=== PATIENT | male | born 1945 | race Caucasian/White ===

== ENCOUNTER 2017-10-26 01:21 | Outpatient (CLI) | payer MEDICARE, OTHER, SELFPAY ==
--- NOTE | 2017-10-26 10:48 | DI.RAD_ITS ---
SYMPTOM/DIAGNOSIS: RENAL CALCULUS, N20.0 ABDOMEN: 10/26 Two views were obtained. A catheter overlies the upper abdomen. Bowel gas pattern is within normal limits. No definite urinary tract calcification is seen.
== END 2017-10-26 01:41 ==
PROVIDERS: PCP Family Medicine; Visit Provider Urology
DX: N20.0 Calculus of kidney (principal)
CPT/HCPCS: 74018

== ENCOUNTER 2018-04-01 16:00 | Outpatient (CLI) | payer MEDICARE, OTHER, SELFPAY ==
--- NOTE | 2018-04-01 14:57 | DI.US_ITS ---
SYMPTOMS/DIAGNOSIS: RIGHT LEG PAIN, M79.604, TENDER VARICOSE VEIN, RIGHT THIGH DUPLEX VENOUS ULTRASOUND, RIGHT LOWER EXTREMITY: Duplex evaluation of the deep venous system was performed according to the usual protocol. The deep veins are freely compressible throughout to the level of the popliteal veins. There is normal Doppler flow visible throughout and there is excellent flow augmentation with manual calf compression. CONCLUSION: No evidence of deep venous thrombosis.
== END 2018-04-01 16:20 ==
PROVIDERS: PCP Family Medicine; Visit Provider Family Medicine
DX: M79.604 Pain in right leg (principal)
CPT/HCPCS: 93971

== ENCOUNTER 2018-08-30 13:15 | Outpatient (REF) | payer MEDICARE, OTHER, SELFPAY ==
[2018-08-30 18:53] LABS: Abs Immature Grans 0.02 k/cumm (0.0-0.09); Absolute Basophil Count 0.05 k/cumm (0.0-0.2); Absolute Eosinophil Count 0.13 k/cumm (0.0-0.7); Absolute Lymphocyte Count 1.75 k/cumm (1.2-3.4); Absolute Monocyte Count 0.83 k/cumm (0.11-0.7); Absolute Neutrophil Count 6.45 k/cumm (1.2-6.7); Basophils % 0.5; Eosinophils % 1.4; HCT 39.4 % (40.0-50.0); HGB 13.5 g/dL (13.5-17.5); Immature Grans % 0.2; Mean Corp. HGB Concentration 34.3 g/dL (32.0-36.0); Mean Corpuscular Hemoglobin 33.2 pg (27.0-33.0); Mean Corpuscular Volume 96.8 fL (80-95); Mean Platelet Volume 11.6 fL (8.0-11.0); Neutrophils % 69.9; Platelet Count 169 x1000/uL (130-400); RBC 4.07 m/cumm (4.50-6.00); RBC Distribution Width 13.3 % (11.8-14.1); White Blood Cell Count 9.23 k/cumm (4.4-10.8)
[2018-08-30 19:47] LABS: ALT 27 U/L (12-78); AST 21 U/L (15-37); Albumin 3.4 g/dL (3.4-5.0); Alkaline Phosphatase 102 U/L (46-116); Anion Gap 9.8 mmol/L (3-11); BUN 34 mg/dL (7-18); Bilirubin, Total 0.5 mg/dL (0.2-1.0); CO2 26.2 mmol/L (21.0-32.0); CREATININE 1.19 mg/dL (0.70-1.30); Calcium 8.7 mg/dL (8.5-10.1); Chloride 104 mmol/L (98-107); Glucose 156 mg/dL (70-100); Magnesium 1.7 mg/dL (1.8-2.4); Potassium 4.6 mmol/L (3.5-5.1); Sodium 140 mmol/L (136-145); Total Protein 6.8 g/dL (6.4-8.2); Vitamin B12 405 pg/mL (193-986)
[2018-08-30 20:41] LABS: NT-proBNP 85 pg/mL
== END 2018-08-30 13:35 ==
LOC: NCHCN 13:15
PROVIDERS: PCP Family Medicine; Visit Provider Family Medicine
DX: R06.02 Shortness of breath (principal); K76.0 Fatty (change of) liver, not elsewhere classified; D70.9 Neutropenia, unspecified; E83.42 Hypomagnesemia; D75.89 Other specified diseases of blood and blood-forming organs
CPT/HCPCS: 80053; 82607; 83735; 83880; 85025

== ENCOUNTER 2019-01-30 19:54 | Outpatient (REF) | payer MEDICARE, OTHER, SELFPAY ==
[2019-01-30 19:12] LABS: HCT 38.7 % (40.0-50.0); Mean Corp. HGB Concentration 33.6 g/dL (32.0-36.0); Mean Corpuscular Hemoglobin 32.8 pg (27.0-33.0); Mean Corpuscular Volume 97.7 fL (80-95); Mean Platelet Volume 11.9 fL (8.0-11.0); Platelet Count 184 x1000/uL (130-400); RBC 3.96 m/cumm (4.50-6.00); RBC Distribution Width 13.3 % (11.8-14.1); White Blood Cell Count 8.84 k/cumm (4.4-10.8)
[2019-01-30 19:35] LABS: ALT 23 U/L (16-63); AST 22 U/L (15-37); Albumin 3.7 g/dL (3.4-5.0); Alkaline Phosphatase 100 U/L (46-116); Anion Gap 10.1 mmol/L (3-11); BUN 33 mg/dL (7-18); Bilirubin, Total 0.7 mg/dL (0.2-1.0); CO2 24.9 mmol/L (21.0-32.0); CREATININE 1.32 mg/dL (0.70-1.30); Calcium 9.3 mg/dL (8.5-10.1); Chloride 105 mmol/L (98-107); Estimated GFR 53.17 (mL/min/1.73m2); Glucose 152 mg/dL (74-106); Magnesium 1.8 mg/dL (1.8-2.4); Sodium 140 mmol/L (136-145); Total Protein 7.4 g/dL (6.4-8.2)
== END 2019-01-30 20:14 ==
LOC: NCHCN 19:54
PROVIDERS: PCP Family Medicine; Visit Provider Family Medicine
DX: E83.42 Hypomagnesemia (principal); M1A.9XX0 Chronic gout, unspecified, without tophus (tophi); K74.60 Unspecified cirrhosis of liver
CPT/HCPCS: 80053; 85027; 83735; 84550; 85610

== ENCOUNTER 2019-08-10 11:06 | Outpatient (REF) | payer MEDICARE, OTHER, SELFPAY ==
[2019-08-10 16:39] LABS: Iron 114 ug/dL (65-175); Total Iron Binding Capacity 259 ug/dL (250-450); Transferrin Sat 44 % (20-55)
[2019-08-10 16:40] LABS: ALT 25 U/L (16-63); AST 27 U/L (15-37); Albumin 3.6 g/dL (3.4-5.0); Alkaline Phosphatase 96 U/L (46-116); Anion Gap 8.9 mmol/L (3-11); BUN 41 mg/dL (7-18); Bilirubin, Total 0.7 mg/dL (0.2-1.0); CO2 26.1 mmol/L (21.0-32.0); CREATININE 1.51 mg/dL (0.70-1.30); Calcium 9.1 mg/dL (8.5-10.1); Chloride 104 mmol/L (98-107); Estimated GFR 45.52 (mL/min/1.73m2); Glucose 173 mg/dL (74-106); Magnesium 1.9 mg/dL (1.8-2.4); Sodium 139 mmol/L (136-145)
== END 2019-08-10 11:26 ==
LOC: NCHCN 11:06
PROVIDERS: PCP Family Medicine; Visit Provider Family Medicine
DX: D64.9 Anemia, unspecified (principal); K74.60 Unspecified cirrhosis of liver; E83.42 Hypomagnesemia
CPT/HCPCS: 80053; 83540; 83550; 83735

== ENCOUNTER 2019-08-17 01:54 | Outpatient (CLI) | payer MEDICARE, OTHER, SELFPAY ==
--- NOTE | 2019-08-17 10:32 | DI.RAD_ITS ---
EXAM: XR CHEST 2V PA LATERAL CLINICAL HISTORY: CHRONIC COUGH, R05 TECHNIQUE: COMPARISON: CR CHEST 2 VIEWS PA,LAT from 07/15/2012 FINDINGS: Diaphragm is mildly elevated on the right, unchanged from prior films of June 2012. Heart is not enla rged. The lungs are clear. No pleural effusion seen. IMPRESSION: Negative examination of the chest.
== END 2019-08-17 02:14 ==
PROVIDERS: PCP Family Medicine; Visit Provider Family Medicine
DX: R05 Cough (principal)
CPT/HCPCS: 71046

== ENCOUNTER 2019-08-21 01:48 | Outpatient (CLI) | payer MEDICARE, OTHER, SELFPAY ==
--- NOTE | 2019-08-21 | DI.US_ITS ---
EXAM: US ABDOMEN RENAL CLINICAL HISTORY: CIRRHOSIS, ANEMIA, RENAL INSUFF, K74.60, D64.9, N28.9 TECHNIQUE: Ultrasound abdomen performed using standard protocol. COMPARISON: CT CT RENAL ARTERY from 11/04/2012 FINDINGS: ABDOMINAL AORTA AND IVC: Visualized portions normal caliber. PANCREAS: Normal where visualized. LIVER: There is mild nodularity of the border of the liver. The liver is mildly echogenic. Hepatic cirrhosis should be considered. Hepatopedal flow in the Portal Vein. GALLBLADDER: No evidence of cholelithiasis. No evidence of wall thickening. No pericholecystic fluid identified. BILIARY SYSTEM: Common bile duct measures 3.7 mm. No intrahepatic biliary ductal dilation. PACHECO'S SIGN: Negative. KIDNEYS: Kidneys are symmetric in size. No evidence of renal calculi. No evidence of hydronephrosis. Bilateral renal cysts are present. The right renal cyst measures 1 x 1.2 x 0.9 cm. The left renal c yst measures 4.5 x 2.6 x 2.5 cm. SPLEEN: Upper limits of normal in size. Splenic varices are present.. ASCITES: None seen. IMPRESSION: 1. Findings suggesting hepatic cirrhosis. 2. Bilateral renal cysts. 3. Splenic varices are present. They were present on the prior CT scan of the abdomen and pelvis fro m 11/04/2012. DATA REPOSITORY:
== END 2019-08-21 02:08 ==
PROVIDERS: PCP Family Medicine; Visit Provider Family Medicine
DX: K74.60 Unspecified cirrhosis of liver (principal); N28.1 Cyst of kidney, acquired; I86.8 Varicose veins of other specified sites
CPT/HCPCS: 76770; 76700

== ENCOUNTER 2019-11-07 08:49 | Outpatient (REF) | payer MEDICARE, OTHER, SELFPAY ==
[2019-11-07 18:47] LABS: HCT 37.9 % (40.0-50.0); HGB 12.5 g/dL (13.5-17.5); MCH 32.5 pg (27.0-33.0); MCV 98.4 fL (80-95); MPV 11.6 fL (8.0-11.0); Platelet Count 165 10^3/uL (130-400); RBC 3.85 10^6/uL (4.36-5.78); RDW 12.6 % (11.8-14.1); RDW-SD 45.4 fL; WBC 7.54 10^3/uL (4.4-10.8)
[2019-11-07 18:54] LABS: CREATININE 1.31 mg/dL (0.70-1.30); Estimated GFR 53.49 (mL/min/1.73m2)
== END 2019-11-07 09:09 ==
LOC: NCHCN 08:49
PROVIDERS: PCP Family Medicine; Visit Provider Family Medicine
DX: D64.9 Anemia, unspecified (principal); R05 Cough
CPT/HCPCS: 85027; 82565

== ENCOUNTER 2019-12-29 14:32 | Outpatient (CLI) | payer MEDICARE, OTHER, SELFPAY ==
--- NOTE | 2019-12-29 | DI.RAD_ITS ---
EXAM: 2D digital imaging was performed. CLINICAL HISTORY: HEMATURIA, R31.9, ? STONE. COMPARISON: CR XR ABDOMEN FLAT PLATE from 10/26/2017 CR XR CHEST 2V PA LATERAL from 08/17/2019 TECHNIQUE: Supine views of the abdomen performed. FINDINGS: BOWEL GAS PATTERN: Nondistended. CALCIFICATIONS: No radiopaque calcifications. OSSEOUS STRUCTURES: Normal for age. OTHER FINDINGS: Again seen findings of a gastric band procedure. Lung bases: Clear. IMPRESSION: 1. Nonobstructive bowel gas pattern. 2. No radiopaque calculi. DATA REPOSITORY: RADIATION DOSE DELIVERED:
== END 2019-12-29 14:52 ==
PROVIDERS: PCP Family Medicine; Visit Provider Nurse Practitioner Family
DX: R31.9 Hematuria, unspecified (principal)
CPT/HCPCS: 74018

== ENCOUNTER 2020-01-25 09:58 | Outpatient (REF) | payer MEDICARE, OTHER, SELFPAY ==
[2020-01-25 18:23] LABS: HCT 38.1 % (40.0-50.0); HGB 12.5 g/dL (13.5-17.5); MCH 32.7 pg (27.0-33.0); MCHC 32.8 % (32.0-36.0); MCV 99.7 fL (80-95); MPV 11.7 fL (8.0-11.0); Platelet Count 171 10^3/uL (130-400); RBC 3.82 10^6/uL (4.36-5.78); RDW 13.4 % (11.8-14.1); RDW-SD 48.6 fL; WBC 9.49 10^3/uL (4.4-10.8)
[2020-01-25 18:27] LABS: Prothrombin Time 10.5 sec (9.3-11.0)
[2020-01-25 18:33] LABS: ALT 24 U/L (16-63); AST 23 U/L (15-37); Albumin 3.4 g/dL (3.4-5.0); Alkaline Phosphatase 107 U/L (46-116); Anion Gap 6.7 mmol/L (3-11); BUN 31 mg/dL (7-18); Bilirubin, Total 0.7 mg/dL (0.2-1.0); CO2 26.3 mmol/L (21.0-32.0); CREATININE 1.36 mg/dL (0.70-1.30); Calcium 8.7 mg/dL (8.5-10.1); Chloride 106 mmol/L (98-107); Estimated GFR 51.22 (mL/min/1.73m2); Glucose 170 mg/dL (74-106); Potassium 4.6 mmol/L (3.5-5.1); Sodium 139 mmol/L (136-145); Total Protein 6.7 g/dL (6.4-8.2)
[2020-01-25 19:31] LABS: Hemoglobin A1C 7.5 % (<5.7)
== END 2020-01-25 10:18 ==
LOC: NCHCN 09:58
PROVIDERS: PCP Family Medicine; Visit Provider Family Medicine
DX: E11.9 Type 2 diabetes mellitus without complications (principal); K74.60 Unspecified cirrhosis of liver
CPT/HCPCS: 80053; 85027; 83036; 85610

== ENCOUNTER 2020-02-06 00:28 | Outpatient (CLI) | payer MEDICARE, OTHER, SELFPAY ==
--- NOTE | 2020-02-06 | DI.US_ITS ---
EXAM: US ABDOMEN CLINICAL HISTORY: CIRRHOSIS OF LIVER,K74.60,HCC SCREEN TECHNIQUE: Ultrasound abdomen performed using standard protocol. COMPARISON: CT CT RENAL ARTERY from 11/04/2012 US US ABDOMEN RENAL from 08/21/2019 FINDINGS: ABDOMINAL AORTA AND IVC: Visualized portions normal caliber. PANCREAS: Normal where visualized. LIVER: The liver measures 17.1 cm in length. Hepatopedal flow in the Portal Vein. The liver has a no dular contour consistent with hepatic cirrhosis. Portions of the liver somewhat difficult to visuali ze. No discrete mass is seen sonographically. GALLBLADDER: No evidence of cholelithiasis. No evidence of wall thickening. No pericholecystic fluid identified. BILIARY SYSTEM: Common bile duct measures < 7 mm. No intrahepatic biliary ductal dilation. PACHECO'S SIGN: Negative. KIDNEYS: Kidneys are symmetric in size. No evidence of renal calculi. No evidence of hydronephrosis. There is a 2.5 x 2.7 x 3.6 cm cyst in the left kidney. This is unchanged compared to the CT scan fro m 11/04/2012. SPLEEN: The spleen measures 11.9 cm in length. Enlarged vessels are seen around the spleen consisten t with varices. These were present on the CT scan from 11/04/2012. ASCITES: None seen. IMPRESSION: Somewhat limited visualization of the liver. No discrete mass is identified. Sonographically findin gs are consistent with hepatic cirrhosis. If there is continued concern a CT scan of the liver with contrast should be considered for further evaluation. DATA REPOSITORY:
== END 2020-02-06 00:48 ==
PROVIDERS: PCP Family Medicine; Visit Provider Family Medicine
DX: K74.60 Unspecified cirrhosis of liver (principal)
CPT/HCPCS: 76700

== ENCOUNTER 2020-02-06 17:39 | Outpatient (REF) | payer MEDICARE, OTHER, SELFPAY ==
[2020-02-06 15:54] LABS: Bilirubin Negative (Negative); Blood Trace-intact (Negative); Clarity Clear (Clear); Glucose Negative (Negative); Ketones Negative (Negative); Leukocyte Esterase Negative (Negative); Nitrite Negative (Negative); Urobilinogen 0.2 EU/dL (Up TO 0.2); pH 5.5 (5-8)
[2020-02-06 16:33] LABS: Bacteria Rare HPF (Negative); C & S Indicated? No; Casts Negative LPF (Negative); Crystals Negative HPF (Negative); Epithelial Cells Negative HPF (Negative); Mucus Negative (Negative); Other Cells Negative (Negative); RBC 0-2 HPF (0-2); WBC Negative HPF (0-5)
== END 2020-02-06 17:59 ==
LOC: NCHCN 17:39
PROVIDERS: PCP Family Medicine; Visit Provider Family Medicine
DX: R31.0 Gross hematuria (principal)
CPT/HCPCS: 81003; 81015

== ENCOUNTER 2020-02-19 01:46 | Outpatient (CLI) | payer MEDICARE, OTHER, SELFPAY ==
--- NOTE | 2020-02-19 09:18 | DI.CT_ITS ---
EXAM: CT ABDOMEN PELVIS WO/W CLINICAL HISTORY: HEMATURIA GROSS, R31.0, H/O BLADDER CA. TECHNIQUE: Imaging Protocol: Axial computed tomography images with coronal and sagittal reformatted images were created and reviewed CONTRAST MATERIAL: Intravenous: Omnipaque 100cc Oral: None COMPARISON: No exams were available for comparison FINDINGS: VISUALIZED LUNG BASES: No nodules nor pleural effusions evident. ABDOMEN: There is a lap band noted the GE junction level. The reservoir is subcutaneous right of center. The no abnormal streaking nor collection in the subcutaneous fat nor along the course of the reservoir t ubing. LIVER: There are few tiny benign cysts in the liver. GALLBLADDER/BILIARY: No obvious gallbladder pathology. CBD is not dilated. PANCREAS: No evidence of pancreatic mass nor dilatation of the pancreatic duct. SPLEEN: Spleen is not enlarged. No obvious intrasplenic lesions. ADRENALS: There are no significant adrenal masses. KIDNEYS:There is an area of hypodensity in the left kidney extending from the parapelvic region out t o the cortical surface measuring approximately 4 x 2.8 centimetres, probably benign cyst. Smaller co rtical cysts are seen in the opposite-right kidney. No obvious solid renal masses. There is a tiny nonobstructive 2 millimeter calculus midpole level of the right kidney. No calculi seen in the left kidney. The ureters are not dilated. There are no calculi at the ureterovesical junctions nor withi n the urinary bladder... ABDOMINAL AORTA: Abdominal aorta is not enlarged and there is no [id number] adenopat hy. ABDOMINAL WALL/GI: No evidence of significant anterior abdominal wall hernia. No bowel obstruction. There is no ascites. There is, however, a left-sided meandering mesenteric vessel with a diameter of 7 millimeters, possibly significant with respect to venous collaterals. There are no abnormal subcu taneous collateral vessels. PELVIS: GI: No evidence of appendicitis.There is extensive sigmoid diverticulosis. There is very mild streak ing around the sigmoid and is junction with the descending-left:, possibly very subtle diverticulitis . No perforation or abscess at this level (series 10/image 57). LYMPH NODES: There is no intrapelvic nor inguinal adenopathy. REPRODUCTIVE: Prostate gland size is upper normal. Seminal vesicles unremarkable. URINARY BLADDER: Cyst there is a focus of regularity in the anterior wall of the urinary bladder, sli ghtly right of center. There is also a small 3 millimeter calcification in the superior wall of the urinary bladder, best seen on the sagittal images. This is on the outer aspect of the bladder wall a t this level. No other calcifications seen associated with the urinary bladder wall nor within the l umen. OSSEOUS: No significant osseous lesions. IMPRESSION: 1. There is a 4 x 2.8 centimeter probable cyst in the left kidney; Bosniak 2. 2. There is also a small 2 millimeter nonobstructive calculus in the opposite-right kidney. 3. There is subtle irregularity in the anterior wall of the urinary bladder which may be significant. Cystoscopy recommended. There is also a single focus of calcification associated with the superior wall of the urinary bladder. This appears to be on the external aspect of the wall at this level an d there is no distinct lesion evident at this level. There are no free calculi evident within the bl adder lumen. 4. Extensive sigmoid diverticulosis. Very mild streaking at the junction of the left-descending colo n and upper sigmoid, possibly very subtle diverticulitis. There is no perforation or abscess at this level. No regional lymphadenopathy. 5. meandering left-sided mesenteric vessel seen which appears to drain into the left renal vein. 6. There is a bariatric LapBand at GE junction. Appears to be in satisfactory position and no evide nce of infectious process along the course of its intraperitoneal and subcutaneous catheter. The res ervoir is subcutaneous, right of center. RADIATION DOSE DELIVERED: 4,199.49mGy.cm Total DLP DATA REPOSITORY: All CT scans at this facility are submitted to the National Radiology Data Registry (NRDR) Dose Index Registry (DIR) with the [employer] ([employer]). RADIATION OPTIMIZATION: All CT scans at this facility use at least one of these dose optimization te chniques: automated exposure control; mA and/or kV adjustment per patient size (includes targeted exa ms where dose is matched to clinical indication); or iterative reconstruction.
[2020-02-19] MEDS: Normal Saline - Diluent 50 ML VIAL IV (09:51)
[2020-02-19] MEDS: Omnipaque 350 MG/ML 100 ML BTL IJ (09:51)
== END 2020-02-19 02:06 ==
PROVIDERS: PCP Family Medicine; Visit Provider Family Medicine
DX: N28.89 Other specified disorders of kidney and ureter (principal); R31.0 Gross hematuria; N20.0 Calculus of kidney; N21.0 Calculus in bladder; K57.30 Diverticulosis of large intestine without perforation or abscess without bleeding; Z98.84 Bariatric surgery status; Z85.51 Personal history of malignant neoplasm of bladder
CPT/HCPCS: 74178; J3490

== ENCOUNTER 2020-08-05 17:55 | Outpatient (REF) | payer MEDICARE, OTHER, SELFPAY ==
[2020-08-05 19:23] LABS: HGB 12.3 g/dL (13.5-17.5); MCH 33.2 pg (27.0-33.0); MCHC 33.2 % (32.0-36.0); MCV 99.7 fL (80-95); MPV 11.4 fL (8.0-11.0); Platelet Count 166 10^3/uL (130-400); RBC 3.71 10^6/uL (4.36-5.78); RDW 13.1 % (11.8-14.1); WBC 8.82 10^3/uL (4.4-10.8)
[2020-08-05 19:27] LABS: INR 1.1 (0.9-1.1); Prothrombin Time 10.8 sec (9.3-11.0)
[2020-08-05 19:43] LABS: ALT 26 U/L (16-63); AST 24 U/L (15-37); Albumin 3.4 g/dL (3.4-5.0); Alkaline Phosphatase 107 U/L (46-116); Anion Gap 9.8 mmol/L (3-11); BUN 32 mg/dL (7-18); Bilirubin, Total 0.5 mg/dL (0.2-1.0); CO2 24.2 mmol/L (21.0-32.0); CREATININE 1.2 mg/dL (0.70-1.30); Calcium 8.8 mg/dL (8.5-10.1); Chloride 107 mmol/L (98-107); Estimated GFR 59.18 (mL/min/1.73m2); Glucose 176 mg/dL (74-106); Potassium 4.7 mmol/L (3.5-5.1); Sodium 141 mmol/L (136-145); Total Protein 6.7 g/dL (6.4-8.2)
== END 2020-08-05 17:56 | disposition home or self-care (01) ==
LOC: NCHCN 17:55
PROVIDERS: PCP Family Medicine; Visit Provider Family Medicine
DX: K74.60 Unspecified cirrhosis of liver (principal)
CPT/HCPCS: 80053; 85027; 85610

== ENCOUNTER 2020-08-28 20:55 | Outpatient (REF) | payer MEDICARE, OTHER, SELFPAY ==
[2020-08-28 19:52] LABS: Bilirubin Negative (Negative); Blood Large (Negative); Clarity Sl Cloudy (Clear); Glucose Negative (Negative); Ketones Trace mg/dL (Negative); Leukocyte Esterase Negative (Negative); Nitrite Negative (Negative); Specific Gravity 1.025 (1.005-1.025); Urobilinogen 0.2 EU/dL (Up TO 0.2)
[2020-08-28 20:30] LABS: C & S Indicated? Yes; RBC >50 HPF (0-2)
== END 2020-08-28 20:56 | disposition home or self-care (01) ==
LOC: NCHCN 20:55
PROVIDERS: PCP Family Medicine; Visit Provider Family Medicine
DX: R31.9 Hematuria, unspecified (principal)
CPT/HCPCS: 87077; 81003; 81015; 87086

== ENCOUNTER 2021-01-23 18:03 | Outpatient (REF) | payer MEDICARE, OTHER, SELFPAY ==
[2021-01-23 19:09] LABS: HCT 38.2 % (40.0-50.0); HGB 12.8 g/dL (13.5-17.5); MCH 32.5 pg (27.0-33.0); MCHC 33.5 % (32.0-36.0); Platelet Count 181 10^3/uL (130-400); RBC 3.94 10^6/uL (4.36-5.78); RDW 13.1 % (11.8-14.1); RDW-SD 46.9 fL; WBC 9.04 10^3/uL (4.4-10.8)
[2021-01-23 20:08] LABS: ALT 26 U/L (16-63); AST 22 U/L (15-37); Albumin 3.6 g/dL (3.4-5.0); Alkaline Phosphatase 111 U/L (46-116); BUN 43 mg/dL (7-18); CREATININE 1.7 mg/dL (0.70-1.30); Calcium 9.2 mg/dL (8.5-10.1); Chloride 103 mmol/L (98-107); Estimated GFR 39.49 (mL/min/1.73m2); Glucose 204 mg/dL (74-106); Potassium 4.5 mmol/L (3.5-5.1); Sodium 140 mmol/L (136-145)
== END 2021-01-23 18:04 | disposition home or self-care (01) ==
LOC: NCHCN 18:03
PROVIDERS: PCP Family Medicine; Visit Provider Family Medicine
DX: K74.60 Unspecified cirrhosis of liver (principal)
CPT/HCPCS: 80053; 85027